=== PATIENT | male | born 1970 | race Caucasian/White ===

== ENCOUNTER 2019-12-02 00:06 | Emergency (ER) | payer MEDICAID ==
[~2019-12-02] VITALS: Ht 172.7 cm; Wt 86.2 kg
[~2019-12-02 00:06] MED LIST: LORA-205 PO; METO5INJ IV; [UNRECOGNIZED DRUG - CODE] IV
[2019-12-02 01:40] LABS: Basophils # (auto) 0 10 ^3/uL (0-0.2); Basophils % (auto) 0.4 % (0.0-2.0); Eosinophils # (auto) 0.2 10 ^3/uL (0-0.8); Hematocrit 46.1 % (41.0-53.0); Hemoglobin 16.1 g/dL (13.5-17.5); Lymphocytes # (auto) 2.4 10 ^3/uL (0.4-5.4); Lymphocytes % (auto) 24.6 % (10.0-50.0); Mean Corpuscular Hemoglobin 31.5 pg (28.0-32.0); Mean Corpuscular Volume 89.9 fL (80.0-100.0); Monocytes # (auto) 0.7 10 ^3/uL (0-1.3); Monocytes % (auto) 7.4 % (0.0-12.0); Neutrophils # (auto) 6.4 10 ^3/uL (1.6-8.6); Neutrophils % (auto) 65.6 % (37.0-80.0); Nucleated Red Blood Cells % 0.1 %; Platelet Count (auto) 321 10^3/uL (140-450); Red Blood Cells 5.13 10^6/uL (4.5-5.90); Red Cell Distribution Width 13.3 % (11.8-14.3); White Blood Cell 9.7 10^3/uL (4.4-10.8)
[2019-12-02 01:58] LABS: Albumin 4.3 g/dL (3.4-5.0); Anion Gap 7 (5-15); Calcium 8.9 mg/dL (8.5-10.1); Carbon Dioxide 25 mmol/L (21-32); Chloride 104 mmol/L (98-107); Glucose 98 mg/dL (74-106); Potassium 3.7 mmol/L (3.5-5.1); Sodium 136 mmol/L (136-145)
[2019-12-02 02:05] LABS: Alanine Aminotransferase 73 U/L (16-61); Alkaline Phosphatase 85 U/L (45-117); Aspartate Aminotransferase 34 U/L (15-37); BUN/Creatinine Ratio 25.3; Bilirubin, Total 0.3 mg/dL (0.2-1.0); Blood Urea Nitrogen 23 mg/dL (7-18); GFR African American 114 mL/min; GFR Non-African American 94 mL/min
[2019-12-02 03:20] VITALS: BP 134/62
== END 2019-12-02 03:22 | disposition home or self-care (01) ==
LOC: ER 00:07
DX: J01.00 Acute maxillary sinusitis, unspecified (principal); R42 Dizziness and giddiness; Z90.49 Acquired absence of other specified parts of digestive tract; Z79.899 Other long term (current) drug therapy
CPT/HCPCS: 36415; 71045; 80053; 82728; 84484; 85025; 87070; 87804; 87880; 93005

== ENCOUNTER 2020-05-04 22:54 | Emergency (ER) | payer MEDICAID ==
[~2020-05-04] VITALS: Ht 172.7 cm; Wt 87.5 kg
[2020-05-04 23:03] VITALS: BP 162/104
[2020-05-04 23:47] LABS: Basophils # (auto) 0.1 10 ^3/uL (0-0.2); Basophils % (auto) 0.6 % (0.0-2.0); Eosinophils # (auto) 0.2 10 ^3/uL (0-0.8); Eosinophils % (auto) 2.3 % (0.0-7.0); Hematocrit 44.7 % (41.0-53.0); Hemoglobin 16.2 g/dL (13.5-17.5); Lymphocytes # (auto) 3.2 10 ^3/uL (0.4-5.4); Lymphocytes % (auto) 31.8 % (10.0-50.0); Mean Corpuscular Hemoglobin 32.6 pg (28.0-32.0); Mean Corpuscular Hgb Conc. 36.2 g/dL (32.0-36.0); Mean Corpuscular Volume 90.2 fL (80.0-100.0); Monocytes # (auto) 0.7 10 ^3/uL (0-1.3); Monocytes % (auto) 6.9 % (0.0-12.0); Neutrophils # (auto) 5.9 10 ^3/uL (1.6-8.6); Neutrophils % (auto) 58.4 % (37.0-80.0); Nucleated Red Blood Cells % 0.2 %; Platelet Count (auto) 348 10^3/uL (140-450); Red Blood Cells 4.96 10^6/uL (4.5-5.90); Red Cell Distribution Width 13.1 % (11.8-14.3); White Blood Cell 10.1 10^3/uL (4.4-10.8)
[2020-05-05 00:02] LABS: Potassium 3.8 mmol/L (3.5-5.1); Sodium 139 mmol/L (136-145)
[2020-05-05 00:09] LABS: Calcium 8.6 mg/dL (8.5-10.1); Carbon Dioxide 25 mmol/L (21-32); GFR African American 99 mL/min; GFR Non-African American 82 mL/min; Glucose 122 mg/dL (74-106)
[2020-05-05 00:17] LABS: Alkaline Phosphatase 92 U/L (45-117); Bilirubin, Total 0.4 mg/dL (0.2-1.0)
[2020-05-05 00:27] LABS: INR 0.92 (0.9-1.15); Partial Thromboplastin Time 24.7 sec (23.0-31.2)
[2020-05-05 00:45] LABS: BUN/Creatinine Ratio 21.6; Blood Urea Nitrogen 22 mg/dL (7-18)
[2020-05-05 00:48] LABS: Alanine Aminotransferase 88 U/L (16-61)
[2020-05-05 00:50] LABS: Aspartate Aminotransferase 46 U/L (15-37); Total Protein 7.6 g/dL (6.4-8.2)
[2020-05-05 01:40] LABS: Urine Bacteria NONE SEEN /hpf (None Seen); Urine Blood Negative /uL (Negative); Urine Specific Gravity 1.023 (1.001-1.035); Urine WBC 1 /hpf (0 - 3)
[2020-05-05 02:08] LABS: Anion Gap 6 (5-15); Chloride 108 mmol/L (98-107)
== END 2020-05-05 05:08 | disposition left against medical advice (07) ==
LOC: ER 22:56
DX: R07.89 Other chest pain (principal); Z53.21 Procedure and treatment not carried out due to patient leaving prior to being seen by health care provider
CPT/HCPCS: 36415; 71045; 80053; 81001; 83735; 83880; 84484; 85025; 85610; 85730

== ENCOUNTER 2022-03-30 21:12 | Emergency (ER) | payer MEDICAID ==
[~2022-03-30] VITALS: Ht 172.7 cm; Wt 189.0 kg
[2022-03-31 00:26] LABS: Calcium 8.6 mg/dL (8.5-10.1); Potassium 3.9 mmol/L (3.5-5.1)
[2022-03-31 00:28] LABS: Albumin 4.1 g/dL (3.4-5.0); BUN/Creatinine Ratio 27.1
[2022-03-31 00:32] LABS: Bilirubin, Total 0.4 mg/dL (0.2-1.0); Total Protein 7.5 g/dL (6.4-8.2)
[2022-03-31 00:39] LABS: Basophils # (auto) 0 10 ^3/uL (0-0.2); Basophils % (auto) 0.6 % (0.0-2.0); Eosinophils # (auto) 0.2 10 ^3/uL (0-0.8); Hematocrit 43.4 % (41.0-53.0); Hemoglobin 14.8 g/dL (13.5-17.5); Lymphocytes # (auto) 2.3 10 ^3/uL (0.4-5.4); Lymphocytes % (auto) 29.5 % (10.0-50.0); Mean Corpuscular Hemoglobin 30.9 pg (28.0-32.0); Mean Corpuscular Hgb Conc. 34.2 g/dL (32.0-36.0); Mean Corpuscular Volume 90.5 fL (80.0-100.0); Monocytes # (auto) 0.6 10 ^3/uL (0-1.3); Monocytes % (auto) 7.8 % (0.0-12.0); Neutrophils # (auto) 4.7 10 ^3/uL (1.6-8.6); Neutrophils % (auto) 60.1 % (37.0-80.0); Red Cell Distribution Width 13.1 % (11.8-14.3); White Blood Cell 7.9 10^3/uL (4.4-10.8)
[2022-03-31 02:48] LABS: Urine Bacteria NONE SEEN /hpf (None Seen); Urine Blood Negative /uL (Negative); Urine Mucus FEW (None Seen); Urine Specific Gravity 1.034 (1.001-1.035); Urine WBC <1 /hpf (0 - 3)
[2022-03-31 04:01] VITALS: BP 145/95
[2022-03-31] MEDS ORDERED: ONDANSETRON ODT 4 MG TAB PO ONE (04:15)
[2022-03-31] MEDS ORDERED: HYOSCYAMINE SULF 0.125 MG ODT TAB PO ONE (04:15)
[2022-03-31] MEDS ORDERED: OMEP20TA PO (04:45)
[2022-03-31] MEDS ORDERED: DICY10CA PO (04:45)
[2022-03-31] MEDS ORDERED: ONDA-144 PO (04:45)
== END 2022-03-31 04:53 | disposition home or self-care (01) ==
LOC: ER 21:12
DX: K29.70 Gastritis, unspecified, without bleeding (principal); K27.5 Chronic or unspecified peptic ulcer, site unspecified, with perforation
CPT/HCPCS: 36415; 80053; 81001; 83690; 85025; 99283; Q0162